=== PATIENT | female | born 2000 | race Caucasian/White ===

== ENCOUNTER 2022-12-18 09:02 | Emergency (ER) | payer OTHER, SELFPAY ==
[2022-12-18 09:12] VITALS: BP 97/54; PULSE 89; RESP 18; TEMP 36.8; O2SAT 98
--- NOTE | 2022-12-18 09:21 | ED.FEMALEGU ---
HPI - Female Genitourinary General Chief complaint: Urogenital-Female Stated complaint: UTI Time Seen by Provider: 12/18/22 09:20 Source: patient Mode of arrival: ambulatory Limitations: no limitations History of Present Illness HPI Narrative: Pallavi is a 22-year-old female patient presenting to the clinic today with complaints of 2 days of urinary symptoms. Patient is complaining of burning with urination, frequency, urgency, and some lower abdominal discomfort she denies any flank pain or fever. Just finished up her menses on Friday Related Data Allergies Allergy/AdvReac Type Severity Reaction Status Date / Time No Known Allergies Allergy Unknown Verified 12/18/22 09:09 [facility] Past Medical History Medical History Encounter for IUD insertion 01/08/19 Mirena insertion 03/06/20 Mirena removal/reinsertion Encounter for IUD removal 03/06/20 Mirena removal/reinsertion 04/03/20 Mirena removal--out of position Nexplanon insertion (~2017) done by Dr. 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 There is no relevant family history pertinent to the patient complaint. Exam Narrative: Pertinent positives per HPI. Patient denies any fever, chills, rash, headache, visual changes, dizziness, cough, runny nose, sore throat, shortness of breath, chest pain, palpitations, nausea, vomiting, diarrhea, constipation. Course Course Emergency Course: Portions of this record may have been created with voice recognition software. Level of Care: Express Care Visit Vital Signs Vital signs: Vital Signs Temperature 36.8 C 12/18/22 09:12 Pulse Rate 89 12/18/22 09:12 Respiratory Rate 18 12/18/22 09:12 Blood Pressure 97/54 L 12/18/22 09:12 Pulse Oximetry 98 12/18/22 09:12 Oxygen Delivery Room Air 12/18/22 09:12 Temperature 36.8 C 12/18/22 09:12 Pulse Rate 89 12/18/22 09:12 Respiratory Rate 18 12/18/22 09:12 Blood Pressure 97/54 L 12/18/22 09:12 Pulse Oximetry 98 12/18/22 09:12 Oxygen Delivery Room Air 12/18/22 09:12 Vital signs reviewed MDM - Female Genitourinary MDM Narrative Medical decision making narrative: At the time of visit patient is resting comfortably on the exam table. Urinalysis was performed and showed that she had a trace of leukocytes and 2+ blood. Will send in prescription for some Macrobid and send her urine for culture. Supportive measures were discussed with the patient she voiced understanding of discharge instructions and agrees to treatment plan. Differential Diagnosis Differential diagnosis: Likely urinary tract infection and cystitis Lab Data Labs: Urine Glucose Negative Reference Range: Negative Urine Bilirubin Negative Reference Range: Negative Urine Ketone Negative Reference Range: Negative Urine Specific [place] 1.025 Reference Range:1
== END 2022-12-18 09:26 | disposition home or self-care (01) ==
PROVIDERS: Emergency Provider Nurse Practitioner Family
DX: N30.01 Acute cystitis with hematuria (principal)
CPT/HCPCS: 81003; 87086; 99213; G0463

== ENCOUNTER 2023-01-29 10:40 | Outpatient (CLI) | payer OTHER, SELFPAY ==
--- NOTE | ~2023-01-29 | US_ITS ---
US breast RT complete DATE: 01/29/2023 11:22 INDICATION: 2 cm lump at 12-1:00 on physical examination. History of left breast fibroadenoma removed about 6 years ago TECHNIQUE: Complete right breast ultrasound examination including all 4 quadrants and subareolar area COMPARISON: 01/03/2016 complete left breast ultrasound examination FINDINGS: 1:00 4 cm from nipple: Parallel circumscribed hypoechoic solid lesion measuring approximately 12 x 11 x 5 mm, without internal vascularity or posterior shadowing 2:00 5 cm from nipple: Irregular hypoechoic heterogeneous mass measuring approximately 18 x 17 x 10 m m, with minimal internal vascularity. Due to the irregular margins, ultrasound-guided biopsy should b e considered. 2:00 6 cm from nipple: Parallel circumscribed irregular hypoechoic mass measuring 16 x 12 x 6 mm with out internal vascularity or posterior shadowing. Due to the irregular margins, ultrasound-guided biop sy should be considered. 2:00 2 cm from nipple: Parallel circumscribed hypoechoic 7.5 x 7 x 4 mm lesion without internal vascu larity or posterior shadowing, likely benign IMPRESSION: BI-RADS Category 4: Suspicious abnormalities; biopsy should be considered for irregular h ypoechoic lesions at 2:00 5 cm from nipple and 2:00 6 cm from nipple Reviewed, dictated and finalized at [facility] Reviewed, dictated and finalized at [facility]. IMPRESSION: BI-RADS Category 4: Suspicious abnormalities; biopsy should be cons idered for irregular hypoechoic lesions at 2:00 5 cm from nipple and 2:00 6 cm from nipple
== END 2023-01-29 10:41 | disposition home or self-care (01) ==
PROVIDERS: Visit Provider Obstetrics & Gynecology
DX: N63.0 Unspecified lump in unspecified breast (principal); R92.8 Other abnormal and inconclusive findings on diagnostic imaging of breast
CPT/HCPCS: 76641

== ENCOUNTER 2025-05-29 20:26 | Emergency (ER) | payer OTHER, SELFPAY ==
--- OUTSIDE RECORDS SUMMARY | 2025-05-29 20:28 | XMS_ITS | Continuity of Care Document ---
Author Organization [facility] Address [address] [place] [address] Phone Care Team Providers Care Dietary Worker Name Role Phone Oliver Cesar DO Unavailable Unavailable Advance Directives Directive Yes / No Effective Date File Name No Information Encounters Encounter Description Practice Location Reason(s) For Visit Diagnoses Date Provider Providers Copied on Encounter [facility], [address], [place], [place], [id number], tel:[phone] [facility] No Information Arsenio Mcbride. [address] [place], [address], . tel: [phone] Family History Family Member Type Diagnosis Age At Onset No Information Payers Payer name Insurance type Covered alliance party ID Authoriza tion(s) Medicaid [facility] [id number] Social History Type Description Quantity Date Captured Comments Sex Female Smoking Status No Information Chief Complaint And Reason For Visit No Information Reason For Referral Reason For Referral No Information History Of Present Illness Encounter Date Complaint History Of Prese nt Illness No Information Functional Status Date Functional Assessmen t No Information Instructions Date Instruction Additional Infor mation No Information Assessments Type Assessment Date No Information Patient Care Teams Name Effective Dates (start - stop) Status Members No Information
--- OUTSIDE RECORDS SUMMARY | 2025-05-29 20:28 | XMS_ITS | Encounter Summary ---
Author Organization [facility] Healthcare Address [address] [place] [address] Care Team Providers Care Hydraulic Blocker Name Role Phone Unavailable Primary Care Provider Unavailabl e Reason for Visit * Diagnostic Imaging (Routine) - Closed Specialty Diagnoses / Procedures Referred By Gina t Referred To Contact Procedures Breast Imaging US Outside Reference Veronica Alvarado NP [address] [facility] [id number] [place] [address] Phone: tel: fax: Referral ID Status Reason Start Date Expiration Date Visits Re quested Visits Authorized [id number] Closed 02/13/2023 03/14/2024 1 1 Encounter Details Date Type Department Care Team (Late st Contact Info) Description 01/03/2016 Hospital Encounter [facility] [address] [place] [phone] Social History Tobacco Use Types Packs/Day Years Used Date Smoking Tobacco: Never AUDIT-C Answer Date Recorded Q1: How often do you have a drink containing alc ohol? Monthly or less 03/04/2023 Q2: How many drinks containi ng alcohol do you have on a typical day when you are drinking? 1 or 2 03/04/2023 Q3: How often do you have si x or more drinks on one occasion? 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 Monthly or less 03/04/2023 10:53 AM Linda Mccloud CMA Q2: How many drinks containing alcohol do you have on a typical day when you are drinking? 1 or 2 03/04/2023 10:53 AM Linda Mccloud CMA Q3: How often do you have six or more drinks on one occasion? Less than monthly 03/04/2023 10:53 AM Linda Mccloud CMA documented as of this encounter Plan of Treatment Not on file documented as of this encounter Procedures Procedure Name Priority Date/Time Associated Diagnosis Comments BREAST IMAGING US OUTSIDE REFERENCE Routine 01/03/2016 12:00 AM CDT documented in this encounter Results * Breast Imaging US Outside Reference (01/03/2016 12:00 AM CDT) Impressions [facility] - 02/13/2023 11:30 AM CDT These images are for Reference purposes only and have not been reviewed by [facility]. There will be no report generated by a [facility] Radiologist. Narrative [facility] - 02/13/2023 11:30 AM CDT EXAMINATION: Images For Reference Purposes Only us Veronica Alvarado NP IMG MAMMO PROCEDURES Final Result [facility] documented in this encounter Visit Diagnoses Not on filedocumented in this encounter
--- OUTSIDE RECORDS SUMMARY | 2025-05-29 20:28 | XMS_ITS | Clinical Summary ---
Author Organization [facility] Address [address] [place] [id number] Care Team Providers Care Street And Building Decorator Name Role Phone Yasir Renee MD Unavailable [phone] Unknown, Notinfile Primary Care Provider Unavail able Allergies No known active allergies Medications Estarylla 0.25-35 mg-mcg per tablet Take 1 tablet by mouth daily 01/07/2023 Active Active Problems No known active problems Surgical History Surgery Date Site/Laterality Comments SECTION 10/20/2017 - 10/19/2018 CYST REMOVAL Left BREAST BIOPSY 03/20/2023 Right Social History Tobacco Use Types Packs/Day Years [...] on file 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 Gender Identity Not on file Sexual Orientation Not on file Obstetrics History Last Filed Vital Signs Vital Sign Reading Time Taken Comments Blood Pressure - - Pulse - - Temperature - - Respiratory Rate - - Oxygen Saturation - - Inhaled Oxygen Concentration - - Weight 64.4 kg (142 lb) 03/04/2023 10:53 AM CDT Height 162.6 cm (5' 4) 03/04/2023 10:53 AM CDT Body Mass Index 24.37 03/04/2023 10:53 AM CDT Plan of Treatment Health Maintenance Due Date Last Done Comments Cervical Cancer Screening 2001 Depression Screening 2001 Hepatitis C Screening 2001 DTaP/Tdap/Td Vaccine (1 - Tdap) 2012 Varicella Vaccines (1 of 2 - 13+ 2-dose series) 2014 HPV Vaccines (1 - 3-dose series) 2016 Hepatitis B Screening 2019 Regular Well Visit/Exam 18-64 2019 Influenza Vaccine (#1) 2025 Pneumococcal vaccine <65 Aged Out No longer eligible based on patient's age to complete this topic Medical Devices Implanted Type Area Evp Sales Device Identifier Shelf Expiration Date Model / Serial / Lot Bard Peripheral Vascular Marker Breast Ring Shape Radiopaque Nitinol Ultracor Twirl [id number] - [id number] Implanted:Qty: 1 on 03/20/2023 at [facility] Right: Breast Bard Peripheral Vascular [id number] / / Insurance [facility] Care Teams Street And Building Decorator Relationship Specialty Start Date End Date Unknown, Notinfile PCP - General 12/16/23 Yasir Renee MD [address] [place] [address] Referring Physician Obstetrics and Gynecology 02/03/23
--- OUTSIDE RECORDS SUMMARY | 2025-05-29 20:28 | XMS_ITS | Clinical Summary ---
Author Organization [facility] Address [address] [place] [address] Care Team Providers Care Singer Songwriter Name Role Phone Homero Barry Aysha Primary Care Provider Brenda mabry Source Comments [facility],non-owned Affiliates and Associated Physician Practices is amultiple site organization consisting of ambulatory clinics and hospital sitesin [place], [place], [place] and [place]. This disclosure is being madepursuant to the Care Everywhere program and may not contain all information available regarding this patient. Last updated 18.[facility] [employer] Allergies No known active allergies Medications * Be aware that medications may not be up to date on this document. Alwaysverify current medications with the patient. 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 Gender Identity Female 03/12/2018 3:50 PM CDT Sexual Orientation Not on file Last Filed Vital Signs Vital Sign Reading Time Taken Comments Blood Pressure 103/34 09/19/2012 6:03 PM DELIVERY TRUCK DRIVER HEAVY Pulse 117 09/19/2012 6:03 PM DELIVERY TRUCK DRIVER HEAVY Temperature 38 C (100.4 F) 09/19/2012 6:03 PM DELIVERY TRUCK DRIVER HEAVY Respiratory Rate 24 09/19/2012 6:03 PM DELIVERY TRUCK DRIVER HEAVY Oxygen Saturation 100% 09/19/2012 6:03 PM DELIVERY TRUCK DRIVER HEAVY Inhaled Oxygen Concentration - - Weight 48.1 kg (106 lb) 09/19/2012 6:03 PM DELIVERY TRUCK DRIVER HEAVY Height - - Body Mass Index - - Plan of Treatment Health Maintenance Due Date Last Done Comments HIV SCREENING 2016 HPV VACCINE (1 - 3-dose series) 2016 CHLAMYDIA/GONORRHEA SCREENING 2017 HEPATITIS C SCREENING 04/25/2019 DTAP/TDAP/TD VACCINES (1 - Tdap) 2020 HEPATITIS B VACCINE (1 of 3 - 19+ 3-dose series) 2020 COVID-19 VACCINE (1 - 2023-2 5 season) 2024 DEPRESSION SCREENING 10/20/2024 INFLUENZA VACCINE (#1) 2025 ZOSTER VACCINE (1 of 2) 2051 HIB VACCINE Aged Out No longer eligi ble based on patient's age to complete this topic MENINGOCOCCAL (Group B) VACC INE SHARED DECISION-MAKING Aged Out No longer eligibl e based on patient's age to complete this topic MENINGOCOCCAL GROUPS A/C/Y/W VACCINE Aged Out No longer eligible b ased on patient's age to complete this topic PNEUMOCOCCAL VACCINE Aged Out No long er eligible based on patient's age to complete this topic Insurance [address], [place] [id number] MEDICAID [place] [employer] Care Teams Singer Songwriter Relationship Specialty Start Date End Date Homero Barry PCP - General Pediatrics 07/23/12
[2025-05-29 20:29] VITALS: BP 124/73; PULSE 100; RESP 16; TEMP 36.6; O2SAT 100
--- OUTSIDE RECORDS SUMMARY | 2025-05-29 20:59 | XMS_ITS | Clinical Summary ---
Author Organization [facility] Address [address] [place] [address] Care Team Providers Care Classification Analyst Name Role Phone Homero Barry Aysha Primary Care Provider Brenda mabry Source Comments [facility],non-owned Affiliates and Associated Physician Practices is amultiple site organization consisting of ambulatory clinics and hospital sitesin [place], [place], [place]. This disclosure is being madepursuant to the Care Everywhere program and may not contain all information available regarding this patient. 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 [place], [place] [id number] MEDICA[place] [employer] Care Teams Classification Analyst Relationship Specialty Start Date End Date Homero Barry PCP - General Pediatrics 07/23/12
--- OUTSIDE RECORDS SUMMARY | 2025-05-29 20:59 | XMS_ITS | Continuity of Care Document ---
Author Organization [facility] Address [address] [place] [address] Phone Care Team Providers Care Inspector Metal Can Name Role Phone Oliver Cesar DO Unavailable Unavailable Advance Directives Directive Yes / No Effective Date File Name No Information Encounters Encounter Description Practice Location Reason(s) For Visit Diagnoses Date Provider Providers Copied on Encounter [facility], [address], [place], [place], [id number], tel:[phone] [facility] No Information Arsenio Mcbride. [address] [place], [address], . tel: [phone] Family History Family Member Type Diagnosis Age At Onset No Information Payers Payer name Insurance type Covered green party ID Authoriza tion(s) Medicaid [facility] [id number] Social History Type Description Quantity Date Captured [...]
--- OUTSIDE RECORDS SUMMARY | 2025-05-29 20:59 | XMS_ITS | Clinical Summary ---
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 Gender Identity Not on file Sexual Orientation [...] this topic Medical Devices Implanted Type Area Marine Scientist Device Identifier Shelf Expiration Date Model / Serial / Lot Bard Peripheral Vascular Marker Breast Ring Shape Radiopaque Nitinol Ultracor Twirl [id number] - [id number] Implanted:Qty: 1 on 03/20/2023 at [facility] Right: Breast Bard Peripheral Vascular [id number] / / Insurance [facility] Care Teams Pedal Assembler Relationship Specialty Start Date End Date Unknown, Notinfile PCP - General 12/16/23 Yasir Renee MD [address] [place] [address] Referring Physician Obstetrics and Gynecology 02/03/23
--- OUTSIDE RECORDS SUMMARY | 2025-05-29 20:59 | XMS_ITS | Encounter Summary ---
Author Organization [facility] Healthcare Address [address] [place] [address] Care Team Providers Care Blanket Folder Name Role Phone Unavailable Primary Care Provider Unavailabl e Reason for Visit * Diagnostic Imaging (Routine) - Closed Specialty Diagnoses / Procedures Referred By Gina t Referred To Contact Procedures Breast Imaging US Outside Reference Veronica Alvarado NP [address] [facility] [id number] [place] [address] Phone: tel: fax: Referral ID Status Reason Start Date Expiration Date Visits Re quested Visits Authorized [id number] Closed 02/13/2023 03/14/2024 1 1 Encounter Details Date Type Department Care Team (Late st Contact Info) Description 01/03/2016 Hospital Encounter [facility] [address] [place] [phone] Social History Tobacco Use Types Packs/Day Years [...] on file Legal Sex Female 11:55 AM CLINICAL DOCUMENTATION NURSE Gender Identity Not on file Sexual Orientation [...] only and have not been reviewed by [facility]. There will be no report generated by a [facility] Radiologist. Narrative [facility] - 02/13/2023 11:30 AM CDT EXAMINATION: Images For Reference Purposes Only us Veronica Alvarado NP IMG MAMMO PROCEDURES Final Result [facility] documented in this encounter Visit Diagnoses Not on filedocumented in this encounter
--- NOTE | 2025-05-29 21:11 | ED.UPPEXIN ---
HPI - Extremity Injury (Upper) General Chief Complaint: Extremity Injury, Upper Stated Complaint: finger laceration Time Seen by Provider: 05/29/25 20:50 Source: patient Mode of arrival: ambulatory Limitations: no limitations History of Present Illness HPI narrative: This is a 25-year-old female that presents emergency department for laceration of the left 2nd finger. Reports she accidentally cut herself with a knife. Reports bleeding and pain to the area. She is not up-to-date on tetanus vaccination. Denies decreased range motion or numbness. Related Data Allergies Allergy/AdvReac Type Severity Reaction Status Date / Time No Known Allergies Allergy Unknown Verified 05/29/25 20:39 Review of Systems Review of Systems: All systems reviewed & are unremarkable except as noted in HPI and below PMFSH Past Medical History Medical History Irregular periods Breast mass, right (01/29/23) Ultrasound [facility] :4 suspicious abnormality/ biopsy to be done 03/20/2023 Breast lump Nexplanon insertion (~2017) done by Dr. Gomez Nexplanon removal (01/13/19) Encounter for IUD removal 03/06/20 Mirena removal/reinsertion 04/03/20 Mirena removal--out of position Encounter for IUD insertion 01/08/19 Mirena insertion 03/06/20 Mirena removal/reinsertion Surgical History Surgical History History of breast biopsy (~2014) left breast cyst-benign History of (03/31/18) primary c/s--failure to dilate Family History Family History (Updated 11/01/24 @ 10:27 by LORELEI Mishra) Mother Hypertension Social History Social History (Updated 11/01/24 @ 10:27 by LORELEI Mishra) Smoking status: Never smoker Second hand tobacco smoke exposure: No Alcohol intake: never Substance use: never Substance use type: does not use Do You Feel Safe in your Home?: Yes Lack of Transportation: No Lack of Food: Never True Current Housing: I Have Housing Concerned About Future Housing: No Difficulty Paying Gas/Electric Bills: YES Difficulty Paying for Meds: No Currently Unemployed: YES Education: High School Diploma/GED Difficulty w/ Childcare or Family Care: YES Living arrangements: other Additional living arrangements comments: single 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 HEAD: Normocephalic, atraumatic. EYES: EOMI. EXTREMITIES: Normal range of motion. No edema. 2cm linear laceration into subcutaneous tissue to the left 2nd finger palmar surface distal phalanx SKIN: Warm, dry, no rash. NEURO: No focal deficits. Alert and oriented x3. PSYCH: Normal mood and affect Course Vital Signs Vital signs: Vital Signs Temperature 97.8 F 05/29/25 20:29 Pulse Rate 100 05/29/25 20:29 Respiratory Rate 16 05/29/25 20:29 Blood Pressure 124/73 05/29/25 20:29 Pulse Oximetry 100 05/29/25 20:29 Oxygen Delivery Room Air 05/29/25 20:29 Temperature 97.8 F 05/29/25 20:29 Pulse Rate 100 05/29/25 20:29 Respiratory Rate 16 05/29/25 20:29 Blood Pressure 124/73 05/29/25 20:29 Pulse Oximetry 100 05/29/25 20:29 Oxygen Delivery Room Air 05/29/25 20:29 Procedures Laceration Laceration 1: Date: 05/29/25 Time: 21:45 Site: hand Side (If applicable): left Size (cm): 2 Description: linear Depth: simple, single layer Local Anesthetic: lidocaine 1% Amount of anesthesia used (mL): 2 Pre-repair: wound explored and irrigated ====== Skin Level ====== Skin layer closed with: nylon Size (cm): 4-0 Number of sutures: 3 Technique: simple, interrupted ====== Subcutaneous Layer ====== ====== Muscle Layer ====== ====== Tendon Layer ====== MDM - Extremity Injury (Upper) MDM Narrative Medical decision making narrative: Patient presents emergency department for laceration to the left 2nd finger sustained just prior to arrival. Patient updated on tetanus vaccination. Wound was irrigated and closed with sutures. She was educated on further wound care. She is to follow up with primary provider. She was given warnings to the ER Critical Care Time Critical Care Time Critical Care Time: No Discharge Plan Discharge Clinical Impression: Laceration Patient Disposition: Home Condition: Stable Instructions: Care For Your Stitches (ED), Laceration (ED) Additional Instructions: Return to the emergency department if you experience fever, redness or swelling of your wound, abnormal drainage from your wound, or any other symptoms that are concerning to you. Apply antibiotic ointment daily. Do not soak the wound. Clean with mild soap and water daily Follow-up with your primary care doctor for suture removal in 10-14 days. Patient Language: Albanian Prescriptions: No Action norgestimate-ethinyl estradiol [Estarylla] 0.25-35 mg-mcg tablet 1 tablet PO DAILY Qty: 84 3RF Follow-up/Referrals: UNKNOWN,DOCTOR [Primary Care Provider] -
[2025-05-29] MEDS: TETANUS,DIPHTHERIA,AC PERTUSSIS ADULT (0.5 ML) BOOSTRIX IM (21:30)
== END 2025-05-29 21:55 | disposition home or self-care (01) ==
PROVIDERS: Emergency Provider Physician Assistant
DX: S61.211A Laceration without foreign body of left index finger without damage to nail, initial encounter (principal); W26.0XXA Contact with knife, initial encounter; Z23 Encounter for immunization
CPT/HCPCS: 12001; 90471; 90715; 99282